=== PATIENT | female | born 1990 | race Caucasian/White ===

== ENCOUNTER 2022-08-11 11:06 | Emergency (ER) | payer MEDICAID ==
[~2022-08-11] VITALS: Ht 175.3 cm; Wt 147.4 kg
[2022-08-11 11:39] VITALS: BP 170/115
--- NOTE | 2022-08-11 11:47 | NUR ---
BIB FRIEND C/O SOB, 9/10 MID CHEST PAIN X 3 DAYS. O2SAT 97 % , BP 170/115 AT THIS TIME. PMH: ASTHMA, HTN
--- NOTE | 2022-08-11 12:30 | NUR ---
xray called pt no answer
--- NOTE | 2022-08-11 13:15 | NUR ---
xray called pt, no answer in lobby
--- NOTE | 2022-08-11 13:36 | NUR ---
No answer for phlebotomy at this time
== END 2022-08-11 12:30 | disposition left against medical advice (07) ==
LOC: MED 11:06
DX: R06.02 Shortness of breath (principal); Z53.21 Procedure and treatment not carried out due to patient leaving prior to being seen by health care provider
CPT/HCPCS: 93005